=== PATIENT | female | born 1970 | race Caucasian/White ===

== ENCOUNTER → 2021-06-02 00:48 | Outpatient (CLI) | payer BC, SELFPAY ==
[2021-06-02 16:45] LABS: SARS-CoV-2 RNA PCR Negative
== END ==
PROVIDERS: Visit Provider Internal Medicine Gastroenterology
DX: Z01.812 Encounter for preprocedural laboratory examination (principal); Z20.822 Contact with and (suspected) exposure to COVID-19
CPT/HCPCS: C9803; U0003; U0005

== ENCOUNTER 2021-06-06 01:53 | Day surgery (SDC) | payer BC, SELFPAY ==
[2021-05-23 14:48] VITALS: BMI 28.9
--- NOTE | 2021-06-05 10:02 | P.PNAN_ITS ---
Anes - Initial Pre Proc Eval Procedure: Operation Date: 06/06/21 08:00 Proposed Procedures p Screening Colonoscopy - Smooth Block MD Date/Time: 06/05/21 10:02 Surgeon: Smooth Block MD Pre Op Diagnosis: neoplasm screening Patient Data Age: 50 Gender: F Height: 1.83 m Weight: 96.8 kg Allergies Allergy/AdvReac Type Severity Reaction Status Date / Time naproxen Allergy Rash Verified 06/06/21 06:42 Home Medications Medication Instructions Recorded Confirmed Type Humalog Pen 05/23/21 History albuterol mcg INHALATION 05/23/21 05/23/21 History aspirin [Adult Low Dose Aspirin] 81 mg PO DAILY 05/23/21 05/23/21 History atorvastatin 40 mg PO DAILY 05/23/21 05/23/21 History fluoxetine 20 mg PO DAILY 05/23/21 05/23/21 History folic acid 1 mg PO DAILY 05/23/21 05/23/21 History insulin glargine [Lantus U-100 10 unit SUBCUT QPM 05/23/21 05/23/21 History Insulin] lisinopril 20 mg PO BID 05/23/21 05/23/21 History methotrexate sodium 05/23/21 05/23/21 History tramadol 50 mg PO Q6H PRN 05/23/21 05/23/21 History Patient hx anesthesia problems: none Family hx anesthesia problems: none [facility] Past Medical History Medical History (Updated 06/05/21 @ 10:02 by Bi Umanzor DO) Asthma COPD (chronic obstructive pulmonary disease) Diabetes type 2, controlled Hyperlipidemia Hypertension Rheumatoid arthritis Surgical History Surgical History (Updated 06/06/21 @ 06:58 by Bi Umanzor DO) Hx of CABG x4, 2016 Social History Social History Smoking packs per day: 0.5 Smoking cigarettes per day: 10.0 Years smoked: 25 Smoking pack-years: 12.50 Smoking status: Current every day smoker Tobacco type: cigarettes Substance use type: does not use Living arrangements: with family Gender identity (if verbalized by the patient): Female Anes - Eval Final PreProcedure Day of Procedure 06/05/21 10:02 Patient weight: overweight Heart: regular rate and rhythm Lungs: clear to auscultation and normal air movement Airway: Mallampati scale class II Neurological: alert and oriented Last oral intake: >/= 8 hours ASA classification: III Emergent: no Anesthetic plan: proceed Anesthesia type and monitoring: general GIVS and standard monitoring Informed Consent: The patient's anesthetic plan and its attendant risks and benefits were discussed with the patient/family/POA. Questions were solicited and answers provided to the satisfaction of the patient/family/POA.
[2021-06-06 06:39] LABS: Glucose Point of Care 142 mg/dl (65-105)
[2021-06-06 06:47] VITALS: BP 126/64; PULSE 90; RESP 16; TEMP 36.1; O2SAT 100; BMI 28.0
[2021-06-06] MEDS: LACTATED RINGERS 1,000 ML 150 ML IV CONT (06:51)
--- NOTE | 2021-06-06 07:55 | PM.HPGS ---
History of Present Illness History of Present Illness Consent: Risks, benefits, and alternatives have been discussed and questions answered. Patient agrees to proceed with procedure. Chief complaint: neoplasm screening Narrative: Patria Garza is a 50 year old female here for first screening colonoscopy Review of Systems Constitutional: Constitutional: Denies headache(s) and Denies weakness Eyes: Eyes: Denies blurry vision ENT: Reports Normal hearing present, Denies headache(s) and Denies neck pain Cardiovascular: Cardiovascular: Denies chest pain and Denies dyspnea Respiratory: Respiratory: Denies dyspnea Gastrointestinal: Gastrointestinal: Reports no additional gastrointestinal complaints Genitourinary: Genitourinary: Denies dysuria Musculoskeletal: Musculoskeletal: Denies neck pain Integumentary/Breasts: Skin/Breast: Denies dry skin Neurologic: Reports Normal hearing present, Denies headache(s) and Denies weakness Psychiatric: Psychiatric: Denies anxiety Endocrine: Endocrine: Denies change in body appearance Hematologic/Lymphatic: Hematologic/Lymphatic: Denies easy bleeding Allergic/Immunologic: Allergic/Immunologic: Denies urticaria [facility] Past Medical History Medical History (Updated 06/06/21 @ 07:56 by Smooth Block MD) Asthma Colon cancer screening COPD (chronic obstructive pulmonary disease) Diabetes type 2, controlled Hyperlipidemia Hypertension Rheumatoid arthritis Surgical History Surgical History (Updated 06/06/21 @ 06:58 by Bi Umanzor DO) Hx of CABG x4, 2016 Social History Social History Smoking packs per day: 0.5 Smoking cigarettes per day: 10.0 Years smoked: 25 Smoking pack-years: 12.50 Smoking status: Current every day smoker Tobacco type: cigarettes Substance use type: does not use Living arrangements: with family Gender identity (if verbalized by the patient): Female Meds Home Medications and Allergies Home Medications Medication Instructions Recorded Confirmed Type Humalog Pen 05/23/21 History albuterol mcg INHALATION 05/23/21 05/23/21 History aspirin [Adult Low Dose Aspirin] 81 mg PO DAILY 05/23/21 05/23/21 History atorvastatin 40 mg PO DAILY 05/23/21 05/23/21 History fluoxetine 20 mg PO DAILY 05/23/21 05/23/21 History folic acid 1 mg PO DAILY 05/23/21 05/23/21 History insulin glargine [Lantus U-100 10 unit SUBCUT QPM 05/23/21 05/23/21 History Insulin] lisinopril 20 mg PO BID 05/23/21 05/23/21 History methotrexate sodium 05/23/21 05/23/21 History tramadol 50 mg PO Q6H PRN 05/23/21 05/23/21 History Allergies Allergy/AdvReac Type Severity Reaction Status Date / Time naproxen Allergy Rash Verified 06/06/21 06:42 Vital Signs Vital Signs - 24 hr 06/06/21 06:47 Temperature 96.9 F L Pulse Rate 90 Respiratory Rate 16 Blood Pressure 126/64 Pulse Oximetry 100 Exam Const: General: comfortable and no acute distress HENMT: General nose exam: Normal nares present Eyes: General: appearance normal, both eyes and all related structures Neck: Neck: no JVD Resp: Auscultation: clear to auscultation bilaterally Cardio: Rate: regular rate Rhythm: regular rhythm GI: Inspection: non-distended GI Palp: Yes Soft to palpation Skin: General skin exam: normal color Neuro: General: gait normal Speech: normal speech Extrem: General: normal to inspection Psych: Mental Status: mental status grossly normal Assessment and Plan Assessment and plan (1) Colon cancer screening: Code(s): Z12.11 - Encounter for screening for malignant neoplasm of colon Status: Acute Assessment and Plan: colonoscopy
[2021-06-06 08:16] VITALS: BP 88/47; PULSE 58; RESP 20; O2SAT 98
[2021-06-06 08:26] VITALS: BP 92/45; PULSE 62; RESP 18; O2SAT 98
[2021-06-06 08:30] LABS: Glucose Point of Care 134 mg/dl (65-105)
[2021-06-06 08:36] VITALS: BP 106/61; PULSE 64; RESP 20; O2SAT 99
== END 2021-06-06 08:46 | disposition home or self-care (01) ==
PROVIDERS: PCP Physician Assistant; Visit Provider Internal Medicine Gastroenterology
PROC: 0DJD8ZZ Inspection of Lower Intestinal Tract, Via Natural or Artificial Opening Endoscopic (ICD-10-PCS; CPT 45378; principal; 2021-06-06 08:00)
DX: Z12.11 Encounter for screening for malignant neoplasm of colon (principal); K64.8 Other hemorrhoids; D12.5 Benign neoplasm of sigmoid colon; J44.9 Chronic obstructive pulmonary disease, unspecified; E11.9 Type 2 diabetes mellitus without complications; I10 Essential (primary) hypertension; M06.9 Rheumatoid arthritis, unspecified; Z79.4 Long term (current) use of insulin; F17.210 Nicotine dependence, cigarettes, uncomplicated
CPT/HCPCS: 45385; 82948; 88305; J2704; J7120

== ENCOUNTER 2021-11-15 14:42 | Outpatient (CLI) | payer BC, SELFPAY ==
[2021-11-15 18:06] LABS: SARS-CoV-2 RNA PCR Positive (Negative)
== END 2021-11-15 14:43 | disposition home or self-care (01) ==
LOC: CHSLAB 14:45
PROVIDERS: PCP Physician Assistant; Visit Provider Physician Assistant
DX: U07.1 COVID-19 (principal); B34.9 Viral infection, unspecified
CPT/HCPCS: C9803; U0003; U0005